=== PATIENT | female | born 2000 | race Caucasian/White ===

== ENCOUNTER 2019-06-13 22:50 | Emergency (ER) | payer SELFPAY ==
[~2019-06-13] VITALS: Ht 165.1 cm; Wt 45.4 kg
[2019-06-13 23:09] VITALS: Ht 165.1 cm; Wt 45.4 kg
[2019-06-13 23:52] LABS: BASOPHIL % 0.1 % (0-2); PLATELET COUNT 312 x10^3mcL (130-400); RED CELL DISTRIBUTION WIDTH 13.3 % (11.5-14.5)
[2019-06-14 00:23] LABS: ALBUMIN 4.1 g/dL (3.4-5.0); CARBON DIOXIDE 25.9 mmol/L (21-32); CHLORIDE SERUM 102 mmol/L (98-107); CREATININE SERUM 0.5 mg/dL (0.6-1.0); GFR1 > 60 mL/min; GLUCOSE SERUM 176 mg/dL (74-106); POTASSIUM SERUM 3.7 mmol/L (3.5-5.1); SODIUM SERUM 137 mmol/L (136-145)
[2019-06-14 00:24] LABS: ALKALINE PHOSPHATASE 69 U/L (46-116); ALT/SGPT 37 U/L (14-59); AMYLASE 68 U/L (25-115); AST/SGOT 34 U/L (15-37); BILIRUBIN TOTAL 0.3 mg/dL (0.20-1.00); LIPASE 159 IU/L (73-393)
[2019-06-14 02:55] VITALS: BP 104/65
== END 2019-06-14 02:55 | disposition home or self-care (01) ==
LOC: ED 22:50 → EDBD 22:50 → ED 06-14 02:55
PROVIDERS: Emergency Medicine
DX: K29.70 Gastritis, unspecified, without bleeding (principal)
CPT/HCPCS: 36415; J1885; Q0092